=== PATIENT | male | born 1990 | race Caucasian/White ===

== ENCOUNTER 2024-08-03 12:57 | Outpatient (CLI) | payer OTHER, SELFPAY ==
--- NOTE | ~2024-08-03 | XR_ITS ---
3 VIEWS THORACIC SPINE Ordering provider: Raquel Welsh, PORT SURVEYOR History: . Left ulnar nerve compression . Comparison: None. FINDINGS: VERTEBRAL BODIES: Normal height and alignment. No visible fracture or subluxation. DISK SPACES: Normal. SOFT TISSUES: Normal. IMPRESSION: No acute osseous abnormality of the thoracic spine. Reviewed, dictated and finalized at location A.
--- NOTE | ~2024-08-03 | XR_ITS ---
XR cervical spine 4-5V Ordering provider: Raquel Welsh, VICE PRESIDENT DIGITAL STRATEGIST History: . Left ulnar nerve compression . Comparison: None. FINDINGS: VERTEBRAL BODIES: Normal height and alignment. No visible fracture or subluxation. The dens is intact . DISK SPACES: Slight Narrowing of the disc C4-C5. Otherwise, normal. PARASPINOUS SOFT TISSUES: No prevertebral soft tissue swelling. IMPRESSION: No acute osseous abnormality cervical spine. Slight Narrowing of the disc C4-C5. Reviewed, dictated and finalized at location A.
--- NOTE | 2024-08-03 14:00 | NEURO_ITS ---
Impression: # Complains of left 5th finger numbness. ? # No Carpal Tunnel Syndrome. ? # Left ulnar neuropathy across the elbow. ? # Normal needle/EMG exam. ?Nerve Conduction Studies Anti Sensory Summary Table ?Stim Site NR Peak (ms) P-T Amp (?V) Site1 Site2 Delta-P (ms) Dist (cm) Hubert (m/s) Left Median Anti Sensory (2-3nd Digit) Wrist ? 2.7 54.6 Wrist 2-3nd Digit 2.7 14.0 52 Wrist ? 2.6 58.6 Wrist 2-3nd Digit 2.7 14.0 52 Left Radial Anti Sensory (Base 1st Digit) Wrist ? 2.8 9.1 Wrist Base 1st Digit 2.8 0.0 Left Ulnar Anti Sensory (5th Digit) Wrist ? 2.6 10.3 Wrist 5th Digit 2.6 14.0 54 Motor Summary Table ?Stim Site NR Onset (ms) O-P Amp (mV) Site1 Site2 Delta-0 (ms) Dist (cm) Hubert (m/s) Left Median Motor (Abd Poll Brev) Wrist ? 2.9 2.6 Elbow Wrist 4.7 29.0 62 Elbow ? 7.6 4.0 Left Ulnar Motor (Abd Dig Minimi) Wrist ? 2.4 5.7 A Elbow Wrist 7.0 33.0 47 A Elbow ? 9.4 3.4 B Elbow Wrist 5.3 25.0 47 B Elbow ? 7.7 3.1 F Wave Studies ?NR F-Lat (ms) L-R F-Lat (ms) Left Median (Mrkrs) (Abd Poll Brev) ? 28.02 Left Ulnar (Mrkrs) (Abd Dig Min) ? 28.93 EMG ?Side Muscle Nerve Root Ins Act Fibs Amp Dur Recrt Comment Left 1stDorInt Ulnar C8-T1 Nml Nml Nml Nml Nml Left Ext Indicis Radial (Post Int) C7-8 Nml Nml Nml Nml Nml Left Ext Digitorum Radial (Post Int) C7-8 Nml Nml Nml Nml Nml Left BrachioRad Radial C5-6 Nml Nml Nml Nml Nml Left PronatorTeres Median C6-7 Nml Nml Nml Nml Nml Left Abd Poll Brev Median C8-T1 Nml Nml Nml Nml Nml Left ABD Dig Min Ulnar C8-T1 Nml Nml Nml Nml Nml Left FlexPolLong Median (Ant Int) C7-8 Nml Nml Nml Nml Nml Left Abd Poll Long Radial (Post Int) C7-8 Nml Nml Nml Nml Nml MTDD
--- OUTSIDE RECORDS SUMMARY | 2024-08-03 14:45 | XMS_ITS | Clinical Summary ---
Author Organization [facility] [employer] [place] Address [address] [facility] [place] [address] Care Team Providers Care Shank Archer Name Role Phone Unavailable Primary Care Provider Unavailabl e Allergies No known active allergies Medications meloxicam (MOBIC) 7.5 mg tabletIndication s:Ulnar nerve compression, left Take 1 Tablet (7.5 mg) by mouth daily. Take with food. 30 Tablet 03/10/2024 Active Active Problems Problem Noted Date Diagnosed Date Elevated blood pressure read ing without diagnosis of hypertension 03/10/2024 Ulnar nerve compression, left 03/10/2024 Resolved Problems Problem Noted Date Diagnosed Date Resolved Date COVID-19 virus antibody detected 02/25/2023 03/10/2024 Encounters Date Type Department Care Team Description 07/29/2024 External Device Data [facility] ABSTRACTION Provider, Abstract 07/07/2024 External Device Data [facility] ABSTRACTION Provider, Abstract 06/09/2024 External Device Data [facility]STRACTION Provider, Abstract 06/03/2024 External Device Data [facility] ABSTRACTION Provider, Abstract 06/03/2024 External Device Data [facility] ABSTRACTION Provider, Abstract from Last 3 Months Immunizations Immunization Administration Dates Next Due (ADACEL/BOOSTRIX)(10 YR UP) TDAP VACCINE, 0.5ML, IM 11/19/2017 Family History Medical History Relation Name Comments No Known Problems Father No Known Problems Half-Brother 1 No Known Problems Half-Brother 2 Unknown Maternal Grandfather No Known Problems Maternal Grandmother No Known Problems Mother Unknown Paternal Grandfather Cordell Garcia Issue with heart valve No Known Problems Paternal Grandmother Relation Name Status Comments Father Alive Half-Brother 1 Alive Half-Brother 2 Alive Maternal Grandfather Maternal Grandmother Alive Mother Alive Paternal Grandfather Cordellcortez Garcia Alive Paternal Grandmother Alive Social History Tobacco Use Types Packs/Day Years Used Date Smoking Tobacco: Never Smokeless Tobacco: Never Alcohol Use Standard Drinks/Week Comments Yes 0 (1 standard drink = 0.6 oz pur e alcohol) Less than once every month Sex and Gender Information Value Date Recorded Sex Assigned at Not on file Legal Sex Male 3:18 PM CDT Gender Identity Not on file Sexual Orientation Not on file Last Filed Vital Signs Vital Sign Reading Time Taken Comments Blood Pressure 126/74 04/07/2024 12:53 PM MOTOR BUILDER ASSEMBLER Pulse 83 04/07/2024 12:53 PM MOTOR BUILDER ASSEMBLER Temperature 36.6 C (97.9 F) 04/07/2024 12:53 PM MOTOR BUILDER ASSEMBLER Respiratory Rate 18 04/07/2024 12:53 PM MOTOR BUILDER ASSEMBLER Oxygen Saturation 97% 04/07/2024 12:53 PM MOTOR BUILDER ASSEMBLER Inhaled Oxygen Concentration - - Weight 159.2 kg (351 lb) 04/07/2024 12:53 PM MOTOR BUILDER ASSEMBLER Height 182.9 cm (6') 04/07/2024 12:53 PM MOTOR BUILDER ASSEMBLER Body Mass Index 47.6 04/07/2024 12:53 PM MOTOR BUILDER ASSEMBLER Plan of Treatment Upcoming Encounters Date Type Department Care Team (Late st Contact Info) Description 10/06/2024 1:00 PM CDT Office Visit [facility] [place] at [facility] [employer] [place] [address] [place] [address] Raquel Welsh, ANP [address] [facility] [address] [facility] [address] [place] [address] Health Maintenance Due Date Last Done Comments HEPATITIS B VACCINES (1 of 3 - 19+ 3-dose series) 2010 INFLUENZA VACCINE (#1) 2023 DTAP/TDAP/TD VACCINES (2 - T d or Tdap) 11/20/2027 11/19/2017 HPV VACCINES Aged Out No longer eligi ble based on patient's age to complete this topic Insurance ALLEGIANCE OPEN ACCESS * Guarantor: [employer]) Account Type Relation to Patient Date of Phone Billing Address Corporate Employer ATTN: GENA CHAHAL [phone] * Guarantor: [employer] Account Type Relation to Patient Date of Phone Billing Address Corporate Employer ATTN: GENA CHAHAL [address] [address]
== END 2024-08-03 12:58 | disposition home or self-care (01) ==
PROVIDERS: Visit Provider Nurse Practitioner Adult Health
DX: G56.22 Lesion of ulnar nerve, left upper limb (principal); M48.02 Spinal stenosis, cervical region
CPT/HCPCS: 72050; 72072; 95886; 95909

== ENCOUNTER 2025-01-20 00:29 | Day surgery (SDC) | payer OTHER, SELFPAY ==
[2025-01-07 18:16] VITALS: BMI 47.5
--- NOTE | 2025-01-07 18:25 | PC.NURSE ---
Report to the Outpatient Waiting Room, entrance under the green pavilion located off [facility], at time __1115__ on date __01/20/25__. Planned Procedure Time: __131__.? Time changes happen often and if your time is changed the preop area will call you the afternoon before. - You and your visitor will be asked to self-screen and do not enter if you have any COVID symptoms. Please call surgeon if you need to reschedule. - A mask is optional within the hospital at this time. NPO for 8 hours Hold all vitamins and supplements for 3 days per anesthesiologist. Please no make-up, nail fijian, hairspray, perfume, deodorant, or body powder the day of surgery.? No jewelry (including any body piercings) or valuables the day of surgery, leave them at home.? Please take a shower or bath the night before, or the morning of, surgery with an antibacterial soap.? Wear comfortable, loose fitting clothing.? - Jewelry must be removed prior to entering the operating room.? Rings and piercings that are not removed may be cut off. - The hospital will not accept responsibility for valuables.? - Please leave all valuables, including medications, at home the day of surgery. If you are going home after surgery, a licensed stunt driver must drive you home.? - NO public transportation without another adult if you receive anesthesia. - We recommend that an adult stay with you for 24 hours following discharge. - We also recommend that you do not drive, make important decision, drink alcoholic beverages, or take any drugs that were not prescribed by your health care provider for at least 24 hours after your discharge time. Follow any additional instructions given to you from your surgeon. Telephone instructions given to _Hilario_and asked if any additional questions and then verbalized understanding. Patient advised to call surgeon office or pre surgery nurse liaison [phone] if any additional questions.
--- OUTSIDE RECORDS SUMMARY | 2025-01-20 00:32 | XMS_ITS | Clinical Summary ---
Author Organization [facility] [employer] [place] Address [address] [place] [address] Care Team Providers Care House Designer Name Role Phone Sanjuana Guillory MD Primary Care Provider [phone] Allergies No known active allergies Medications meloxicam (MOBIC) 7.5 mg tabletIndicatio ns:Ulnar nerve compression, left Take 1 Tablet (7.5 mg) by mouth daily. Take with food. 30 Tablet Active Additional Information Patient not taking.Reported on 01/05/2025 Active Problems Problem Noted Date Diagnosed Date Morbid obesity with body mass index of 40.0-49.9 10/06/2024 Elevated blood pressure read ing without diagnosis of hypertension 03/10/2024 Ulnar nerve compression, left 03/10/2024 Resolved Problems Problem Noted Date Diagnosed Date Resolved Date COVID-19 virus antibody detected 02/25/2023 03/10/2024 Encounters Date Type Department Care Team Description 01/05/2025 1:00 PM CDT Office Visit [facility] at Work [employer] [place] [address] [place] [address] Raquel Welsh, MANJEET Morbid obesity with body mass index of 40.0-49.9 (CMS/HCC) (Primary Dx); Ulnar nerve compression, left 12/30/2024 External Device Data [facility] ABSTRACTION Provider, Abstract from Last 3 Months Immunizations Immunization Administration Dates Next Due (ADACEL/BOOSTRIX)(10 YR UP) TDAP VACCINE, 0.5ML, IM 11/19/2017 Family History Medical History Relation Name Comments No Known Problems Father No Known Problems Half-Brother 1 No Known Problems Half-Brother 2 Heart Disease Maternal Grandfather Unknown Maternal Grandfather No Known Problems Maternal Grandmother No Known Problems Mother Unknown Paternal Grandfather Cordell Garcia Issue with heart valve Asthma Paternal Grandmother Relation Name Status Comments Father Alive Half-Brother 1 Alive Half-Brother 2 Alive Maternal Grandfather Maternal Grandmother Mother Alive Paternal Grandfather Cordell Garcia Alive Paternal Grandmother Alive Social History Tobacco Use Types Packs/Day Years Used Date Smoking Tobacco: Never Smokeless Tobacco: Never Alcohol Use Standard Drinks/Week Comments Not Currently 0 (1 standard drink = 0.6 oz pur e alcohol) Less than once every month Sex and Gender Information Value Date Recorded Sex Assigned at Not on file Legal Sex Male 3:18 PM CDT Gender Identity Not on file Sexual Orientation Not on file Last Filed Vital Signs Vital Sign Reading Time Taken Comments Blood Pressure 116/68 01/05/2025 12:51 PM CDT Pulse 87 01/05/2025 12:51 PM CDT Temperature 37.3 C (99.1 F) 01/05/2025 12:51 PM CDT Respiratory Rate 18 01/05/2025 12:51 PM CDT Oxygen Saturation 97% 01/05/2025 12:51 PM CDT Inhaled Oxygen Concentration - - Weight 163.3 kg (360 lb) 01/05/2025 12:51 PM CDT Height 182.9 cm (6') 01/05/2025 12:51 PM CDT Body Mass Index 48.82 01/05/2025 12:51 PM CDT Plan of Treatment Upcoming Encounters Date Type Department Care Team (Late st Contact Info) Description 03/09/2025 1:00 PM CDT Office Visit [facility] at Work [employer] [place] [address] [place] [address] Raquel Welsh, ANP [address] [place] [address] Health Maintenance Due Date Last Done Comments HEPATITIS B VACCINES (1 of 3 - 19+ 3-dose series) 12/2009 HPV VACCINES (1 - 3-dose SCDM series) 2018 Preventative Visit- Commercial 05/13/2024 INFLUENZA VACCINE (#1) 2024 DTAP/TDAP/TD VACCINES (2 - Td or Tdap) 11/20/2027 Insurance [facility] OPEN ACCESS [employer] OPEN ACCESS * Guarantor: [employer] Account Type Relation to Patient Date of Phone Billing Address Corporate Employer ATTN: GENA CHAHAL [address] [address] Care Teams House Designer Relationship Specialty Start Date End Date Sanjuana Guillory MD [address] [place] [address] [place] [address] PCP - General Internal Medicine 10/06/24
--- NOTE | 2025-01-20 06:51 | WPDHPUPDATE1 ---
History and Physical Update Update Date/Time: 01/20/25 06:51 Patient seen and examined in pre-operative holding area. No interval change in medical history or symptoms. Patient recalls previous discussion of benefits and alternatives to procedure. Continues to desire to proceed with left cubital tunnel release. Reviewed procedure, post-op expectations and risks including but not limited to bleeding, infection, injury to tendon/nerve/vessel, decreased hand function, stiffness, RSD, no change or worsening of symptoms. I discussed the possible use of assistants and their participation in the case. Patient stated understanding and signed the consent form wishing to proceed.
--- NOTE | 2025-01-20 06:51 | W.PM.PROC2 ---
Procedure Note - Detailed Date of Procedure 01/20/25 Pre-op Diagnosis Left Cubital Tunnel syndrome Post-op Diagnosis Same Procedure Performed left cubital tunnel release Surgeon Thomas Singh MD Anesthesia MAC Description of Procedure INFORMED CONSENT:The patient was seen and examined and marked in the pre-op area.? The patient signed the consent form. PROCEDURE IN DETAIL: The patient taken back to OR on the stretcher in supine position. Time out performed with anesthesia, surgeon and staff agreeing on patient's name site and surgery to be performed SCDs were placed on the lower extremities and inflated A tourniquet was placed on {left} upper extremity and antibiotics given IV After anesthesia administered sedation I injected {8}cc 1%lido with epi and 0.5% marcaine plain at the operative site The?{/left upper extremity}?was prepped and draped in sterile fashion the??{left upper extremity} was??exsanguinated with Esmarch bandage and tourniquet inflated to 250mmHg I next proceeded with making a longitudinal incision between two heads for flexor carpi ulnaris at end of {left} cubital tunnel with 15 blade scalpel.? Littler scissors were used to spread down to FCU fascia.? An incision was made in FCU fascia and ulnar nerve identified exiting cubital tunnel.? I proceeded with complete retrograde release of the cubital tunnel including 7cm proximal for the intermuscular septum.? The nerve appeared fatty and dystrophic but with visible vaso nervorum.? There was no subluxation on full elbow range of motion. ? I irrigated with normal saline and closure with 4-0 monocryl for dermis and subcuticular. The incision was covered with Dermabond then 4x4s, johnathan, and a posterior elbow splint for patient safety, security and comfort and secured with rick bandages after the tourniquet was let down noting the hand was warm and well perfused.? Patient awaken from anesthesia and transferred to recovery in stable condition Complications - none EBL- 1cc Disposition - home in stable condition [facility] Billing Surgery - Charge Forward: Surgery Billing ([id number])
[2025-01-20 09:21] VITALS: BP 131/81; PULSE 85; TEMP 37.1; O2SAT 96; BMI 48.2
[2025-01-20] MEDS: LACTATED RINGERS 1,000 ML 30 ML IV CONT (09:23)
[2025-01-20] MEDS: ACETAMINOPHEN 500 MG TABLET 1000 MG PO (09:23)
--- NOTE | 2025-01-20 09:46 | P.PNAN_ITS ---
Anes - Initial Pre Proc Eval Procedure: Operation Date: 01/20/25 10:45 Proposed Procedures p Left Cubital Tunnel Release - Thomas Singh MD Date/Time: 01/20/25 09:46 Surgeon: Thomas Singh MD Pre Op Diagnosis: Left Cubital Tunnel syndrome Patient Data Age: 34 Gender: M Height: 1.83 m Weight: 161.2 kg Last Vital Signs Temp 37.1 C 01/20/25 09:21 Pulse 85 01/20/25 09:21 BP 131/81 01/20/25 09:21 Pulse Ox 96 01/20/25 09:21 O2 Del Method Room Air 01/20/25 09:21 Allergies Allergy/AdvReac Type Severity Reaction Status Date / Time No Known Allergies Allergy Verified 01/20/25 09:19 Home Medications ?Medication ?Instructions ?Recorded ?Confirmed ?Type oxycodone 5 mg tablet 5 mg PO Q6H PRN pain #10 tab s 01/20/25 Rx Patient hx anesthesia problems: none Family hx anesthesia problems: none Results Review: All pre-operative results and documents have been reviewed as part of the pre- operative evaluation. [facility] Social History Social History (Updated 01/12/25 @ 12:58 by Glenda Carpio) Social History: Caffeine-tea Smoking status: Never smoker Alcohol intake: current Alcohol use details: Rarely Substance use: never Substance use type: does not use Living arrangements: alone Spiritual care concerns: No Anes - Eval Final PreProcedure Day of Procedure 01/20/25 09:46 Patient weight: morbidly obese Heart: regular rate and rhythm Lungs: clear to auscultation Airway: Mallampati scale class II Neurological: alert and oriented Last oral intake: >/= 8 hours ASA classification: III Emergent: no Anesthetic plan: proceed Anesthesia type and monitoring: general GIVS and standard monitoring Results Review: All pre-operative results and documents have been reviewed as part of the pre- operative evaluation. Informed Consent: The patient's anesthetic plan and its attendant risks and benefits were discussed with the patient/family/POA. Questions were solicited and answers provided to the satisfaction of the patient/family/POA.
[2025-01-20] MEDS: ceFAZolin 3 GM/D5W 100 ML 100 ML IVPB (10:11)
[2025-01-20 10:34] VITALS: BP 136/86; PULSE 94; RESP 14; O2SAT 100
[2025-01-20 11:04] VITALS: BP 129/81; PULSE 87
[2025-01-20 11:30] VITALS: BP 138/88; PULSE 86
== END 2025-01-20 11:35 | disposition home or self-care (01) ==
PROVIDERS: PCP Nurse Practitioner Adult Health; Visit Provider Plastic Surgery
PROC: (CPT 64721; principal; 2025-01-20 10:45)
DX: G56.22 Lesion of ulnar nerve, left upper limb (principal); E66.01 Morbid (severe) obesity due to excess calories; Z68.42 Body mass index [BMI] 45.0-49.9, adult; Z79.891 Long term (current) use of opiate analgesic
CPT/HCPCS: 64718; A9270; J0690; J1100; J2003; J2250; J2405; J2704; J3010; J7120